=== PATIENT | male | born 1945 | race Caucasian/White ===

== ENCOUNTER 2017-04-20 10:52 | Day surgery (SDC) | payer MEDICARE ==
[2017-04-20] MEDS ORDERED: XARE20TA PO (11:52)
[2017-04-20] MEDS ORDERED: LITH150C PO (11:52)
[2017-04-20] MEDS ORDERED: OMEP20TA93 PO (11:52)
[2017-04-20] MEDS ORDERED: LEVO175T2 PO (11:52)
[2017-04-20] MEDS ORDERED: NITR0.4S SL (11:52)
[2017-04-20] MEDS ORDERED: AMIO200T PO (11:52)
[2017-04-20] MEDS ORDERED: VENTAER INH (11:52)
[2017-04-20] MEDS ORDERED: POVIDONE IODINE 5% (ANTISEPSIS KIT) 4 APPLICATIONS EACH NARE PRN (12:00)
[2017-04-20] MEDS ORDERED: METOPROLOL TARTRATE 25 MG TAB PO PRN (12:00)
[2017-04-20] MEDS ORDERED: INSULIN HUMAN REGULAR 1,000 UNITS/10 ML VIAL SQ PRN (12:00)
[2017-04-20] MEDS ORDERED: SODIUM CHLORID 0.9% 500 ML IV PRN (12:00)
[2017-04-20] MEDS ORDERED: CHLORHEXIDINE GLUCONATE 2 % 1 PACK (2 CLOTHS) TOPICAL PRN (12:00)
[2017-04-20] MEDS ORDERED: LACTATED RINGER'S 1000 ML IV PRN (12:00)
--- NOTE | 2017-04-20 17:36 | EKG ---
Date Performed: 04/20/2017 Time Performed: 11:11:16 PTAGE: 71 years EKG: Atrial fibrillation with rapid ventricular response. ST junctional depression is nonspecifi c Low QRS voltages in limb leads Abnormal ECG NO PREVIOUS TRACING DOCTOR: Manuel Mitchell Interpretating Date/Time 04/20/2017 17:36:37
--- NOTE | 2017-04-21 22:54 | MP ---
cc: MARLEY CRAIG MD DATE OF SURGERY 04/20/17 Transesophageal echo INDICATION 1. Rule out thrombus 2. Evaluate mitral valve regurgitation with Doppler. CONSENT Full informed Consent was obtained prior to procedure. Risk of , bleeding, myocardial infarction, perforation, aspiration, foreseen and unforeseen complications are reviewed. The patient fully appeared to understand the risks. PROCEDURAL STATEMENT The patient was draped and prepped in the usual manner. Anesthesia was given as per the Anesthesia Department. A full transesophageal echo was performed. FINDINGS The aortic valve was mildly thickened. There was evidence of trace aortic vegetation. The mitral valve was mildly thickened. There was evidence of mild mitral regurgitation. The tricuspid valve moved normally. The left systolic function was normal. The left atrial appendage was well visualized and free of thrombus. The aorta was visualized to 45 cm with evidence of mild plaquing. CONCLUSION Normal LV function. No evidence of left atrial appendage thrombus. PLAN Proceed with cardioversion Marley Craig MD, FRCP,[facility]/ /1:49 PM /10:35 PM
--- NOTE | 2017-04-21 23:08 | MP ---
cc: MARLEY CRAIG MD DATE OF SURGERY 04/20/17 INDICATION Atrial fibrillation CONSENT Full inform consent was obtained prior to procedure. Risks of , aspiration, cardiac arrest, foreseen and unforeseen complications were reviewed. The patient appeared to understand. PROCEDURAL STATEMENT Following transesophageal echocardiogram, no left appendage thrombus seen. The patient underwent a 200 joule synchronized cardioversion. The patient was then shocked to sinus rhythm. CONCLUSION Successful cardioversion to sinus rhythm. Marley Craig MD, FRCP,[facility]/ /1:50 PM /10:40 PM
== END 2017-04-20 14:45 | disposition home or self-care (01) ==
LOC: HDOC 10:52 → HDIC 10:52 → HDOC 14:45
PROVIDERS: ATTEND Internal Medicine Cardiovascular Disease
DX: I48.91 Unspecified atrial fibrillation (principal); I10 Essential (primary) hypertension; J44.9 Chronic obstructive pulmonary disease, unspecified; E03.9 Hypothyroidism, unspecified; I73.9 Peripheral vascular disease, unspecified
CPT/HCPCS: 92960; 93005; 93312; 93320; 93325